=== PATIENT | female | born 1945 | race Caucasian/White ===

== ENCOUNTER 2017-12-27 06:28 | Day surgery (SDC) | payer OTHER ==
[2017-12-26 10:29] VITALS: BP 176/83
[2017-12-27] VITALS (14 sets, daily range): BP systolic 136–179; BP diastolic 55–84
[~2017-12-27] VITALS: Ht 162.6 cm; Wt 104.1 kg
[~2017-12-27 06:28] MED LIST: ACET-2743 PO; AMLO1CAP12 PO; ASPI-1181 PO; ATOR20TA PO; CEFAZOLIN 3GM /D5W 100ML 100 ML IV SCH; CHOL200013 PO; GLIM4TAB3 PO; METF-446 PO
[2017-12-27] MEDS ORDERED: CEFAZOLIN SODIUM 1 GM VIAL ONE ×2 (07:41→09:49)
[2017-12-27] MEDS ORDERED: SODIUM CHLORIDE 0.9% 1000ML 1,000 ML IV ONE (07:41)
[2017-12-27] MEDS ORDERED: LIDOCAINE PF 2% 5ML ABBOJECT ONE ×2 (07:43→09:23)
[2017-12-27] MEDS ORDERED: PROPOFOL 10 MG/ML 20ML VIAL IV ONE ×2 (07:43→09:23)
[2017-12-27] MEDS ORDERED: EPHEDRINE SULFATE 50 MG/ML AMPULE ONE (07:43)
[2017-12-27] MEDS ORDERED: ONDANSETRON HCL 4 MG/2 ML VIAL ONE ×2 (07:43→09:23)
[2017-12-27] MEDS ORDERED: ACAR25TA2 PO (08:03)
[2017-12-27] MEDS ORDERED: MIDAZOLAM HCL 1 MG/ML 2ML VIAL ONE (09:23)
[2017-12-27] MEDS ORDERED: DEXAMETHASONE SOD PHOSPHATE 10MG/ML 1ML VIAL ONE (09:23)
[2017-12-27] MEDS ORDERED: FENTANYL CITRATE PF 50 MCG/1 ML 2ML VIAL ONE (09:23)
[2017-12-27] MEDS ORDERED: CEPH500B PO (10:17)
[2017-12-27] MEDS ORDERED: TYL3 PO (10:17)
[2017-12-27] MEDS ORDERED: MORPHINE SULFATE 4 MG/1ML SYG ONE (10:24)
[2017-12-27] MEDS ORDERED: MORPHINE SULFATE 2 MG/ML 1ML SYG ONE (10:41)
== END 2017-12-27 12:10 | disposition home or self-care (01) ==
LOC: DAH 06:28
PROVIDERS: ATTEND Orthopaedic Surgery
DX: M23.221 Derangement of posterior horn of medial meniscus due to old tear or injury, right knee (principal); M22.41 Chondromalacia patellae, right knee; Z68.38 Body mass index [BMI] 38.0-38.9, adult; I10 Essential (primary) hypertension; Z86.73 Personal history of transient ischemic attack (TIA), and cerebral infarction without residual deficits; E78.5 Hyperlipidemia, unspecified; M19.90 Unspecified osteoarthritis, unspecified site; Z98.890 Other specified postprocedural states; Z90.710 Acquired absence of both cervix and uterus; Z80.9 Family history of malignant neoplasm, unspecified; G89.29 Other chronic pain; E11.65 Type 2 diabetes mellitus with hyperglycemia; Z79.4 Long term (current) use of insulin; E78.00 Pure hypercholesterolemia, unspecified; E66.9 Obesity, unspecified; E55.9 Vitamin D deficiency, unspecified
CPT/HCPCS: 29881; 82948 ×2; A4218; A4606; A4649 ×2; A4930 ×2; A6223; J0690 ×2; J1100; J2001; J2250; J2270; J2405; J2704; J3010; J7030; J3490

== ENCOUNTER → 2018-04-25 | Outpatient (CLI) | payer OTHER ==
[~2018-04-25] MED LIST changes: +ACAR25TA2 PO; -CEFAZOLIN 3GM /D5W 100ML 100 ML IV SCH; +CEPH500B PO; +TYL3 PO
== END | disposition home or self-care (01) ==
LOC: RAH 13:37
PROVIDERS: ATTEND Orthopaedic Surgery
DX: S42.124A Nondisplaced fracture of acromial process, right shoulder, initial encounter for closed fracture (principal); X58.XXXA Exposure to other specified factors, initial encounter; Y93.89 Activity, other specified; Y92.89 Other specified places as the place of occurrence of the external cause; Y99.8 Other external cause status
CPT/HCPCS: 73200

== ENCOUNTER 2018-06-02 14:45 | Observation (INO) | payer OTHER ==
[~2018-06-02] VITALS: Ht 162.6 cm; Wt 103.4 kg
[~2018-06-02 14:45] MED LIST changes: -ACAR25TA2 PO; -ACET-2743 PO; -ATOR20TA PO; -CEPH500B PO; -CHOL200013 PO; -TYL3 PO
[2018-06-02 15:30] VITALS: BP 128/60
[2018-06-02] MEDS ORDERED: ACET-2743 PO (16:03)
[2018-06-02] MEDS ORDERED: ATOR20TA65 PO (16:03)
[2018-06-02 16:11] LABS: APPEARANCE,URINE Clear (CLEAR); BILIRUBIN,URINE Negative (NEGATIVE); COLOR,URINE Yellow (YELLOW); GLUCOSE, URINE (UA) Negative (NEGATIVE); KETONES,URINE Trace mg/dL (NEGATIVE); LEUKOCYTE ESTERASE ,URINE Negative (NEGATIVE); NITRATE,URINE Negative (NEGATIVE); OCCULT BLOOD,URINE Negative (NEGATIVE); PROTEIN,URINE Negative (NEGATIVE)
[2018-06-05] VITALS (19 sets, daily range): BP systolic 111–190; BP diastolic 54–92
[2018-06-05] MEDS ORDERED: CEFAZOLIN 3GM /D5W 100ML 100 ML IV PRN (08:00)
[2018-06-05] MEDS ORDERED: SODIUM CHLORIDE 0.9% 1000ML 1,000 ML IV ONE (09:52)
[2018-06-05] MEDS: CEFAZOLIN SODIUM 1 GM VIAL ONE ×2 (10:15→14:35)
[2018-06-05] MEDS ORDERED: CHOL50004 PO (10:21)
[2018-06-05] MEDS ORDERED: NAPR220C15 PO (10:21)
[2018-06-05] MEDS ORDERED: ACAR100T2 PO (10:21)
[2018-06-05] MEDS ORDERED: LIDOCAINE PF 2% 5ML ABBOJECT ONE (10:50)
[2018-06-05] MEDS ORDERED: SUCCINYLCHOLINE 200MG/10ML SYR ONE (10:50)
[2018-06-05] MEDS ORDERED: MIDAZOLAM HCL 1 MG/ML 2ML VIAL ONE (10:51)
[2018-06-05] MEDS ORDERED: GLYCOPYRROLATE 1 MG/5 ML SYRINGE ONE ×2 (10:51→18:01)
[2018-06-05] MEDS ORDERED: ONDANSETRON HCL 4 MG/2 ML VIAL ONE (10:51)
[2018-06-05] MEDS ORDERED: NEOSTIGMINE 5MG/5ML SYR IV ONE ×2 (10:51→18:01)
[2018-06-05] MEDS ORDERED: PROPOFOL 10 MG/ML 20ML VIAL IV ONE (10:51)
[2018-06-05] MEDS ORDERED: DEXAMETHASONE SOD PHOSPHATE 10MG/ML 1ML VIAL ONE (10:51)
[2018-06-05] MEDS ORDERED: ROCURONIUM 10MG/1ML SYR 10 MG/ML ML ONE (10:52)
[2018-06-05] MEDS ORDERED: FENTANYL CITRATE PF 50 MCG/1 ML 2ML VIAL ONE (10:52)
[2018-06-05] MEDS ORDERED: LIDOCAINE HCL 4% LTA SOL 4 ML VIAL ONE (10:53)
[2018-06-05] MEDS ORDERED: CEPH-578 PO (10:54)
[2018-06-05] MEDS ORDERED: ASPI-1012 PO (10:54)
[2018-06-05] MEDS ORDERED: TYL3 PO (10:54)
[2018-06-05] MEDS ORDERED: ROPIVACAINE 0.5% 5MG/ML 30ML IJ ONE (11:04)
[2018-06-05] MEDS ORDERED: CEFAZOLIN SODIUM 1 GM VIAL ONE ×2 (12:18→17:22)
[2018-06-05] MEDS ORDERED: EPHEDRINE SULFATE 50 MG/ML AMPULE ONE (14:49)
[2018-06-05] MEDS ORDERED: HYDROCODONE/ACETAMINOPHEN 5/325 MG TAB PO PRN (18:30)
[2018-06-05] MEDS ORDERED: DIPHENHYDRAMINE HCL 25 MG CAPSULE PO PRN (18:30)
[2018-06-05] MEDS ORDERED: TEMAZEPAM 15 MG CAPSULE PO PRN (18:30)
[2018-06-05] MEDS ORDERED: LIDOCAINE HCL-MPF 1% 2ML VIAL IVP PRN (18:30)
[2018-06-05] MEDS ORDERED: CALCIUM CARBONATE 500 MG TABLET PO PRN (18:30)
[2018-06-05] MEDS ORDERED: DiphenhydrAMINE HCL 50 MG/ML VIAL IVP PRN (18:30)
[2018-06-05] MEDS ORDERED: POTASSIUM CHLORIDE 20MEQ/100ML 100 ML IV PRN (18:30)
[2018-06-05] MEDS ORDERED: FERROUS FUMARATE 324 MG TABLET PO PRN (18:30)
[2018-06-05] MEDS ORDERED: PROMETHAZINE HCL 25 MG/ML 1ML AMPULE IM PRN (18:30)
[2018-06-05] MEDS ORDERED: POTASSIUM CHLORIDE 10% ELIXIR 20 MEQ/15 ML UDCUP PO PRN (18:30)
[2018-06-05] MEDS ORDERED: ACETAMINOPHEN 1000 MG PO SCH (20:00)
[2018-06-05] MEDS: SODIUM CHLORIDE 0.9% 1000ML 1,000 ML IV SCH (20:15)
[2018-06-05] MEDS: INSULIN HUMULIN R 100 UNIT/ML 3ML SQ SCH (20:16)
[2018-06-05] MEDS: ATORVASTATIN CALCIUM 20 MG TABLET PO SCH (22:04)
[2018-06-05] MEDS: FAMOTIDINE 20MG TAB 20 MG TAB PO SCH (22:05)
[2018-06-05] MEDS: HYDROCODONE/ACETAMINOPHEN 5/325 MG TAB PO PRN (22:09)
[2018-06-06] VITALS (7 sets, daily range): BP systolic 137–188; BP diastolic 65–91
[2018-06-06] MEDS: CEFAZOLIN SODIUM 1 GM VIAL IVP SCH ×2 (00:14→09:49)
[2018-06-06] MEDS: HYDROCODONE/ACETAMINOPHEN 5/325 MG TAB PO PRN ×2 (03:44→16:59)
[2018-06-06] MEDS: SODIUM CHLORIDE 0.9% 1000ML 1,000 ML IV SCH (04:03)
[2018-06-06 05:29] LABS: HEMATOCRIT 27.8 % (36-48); MEAN CORPUSCULAR HEMOGLOBIN 26.2 pg (27.0-33.0); MEAN CORPUSCULAR HGB CONC 32.5 g/dL (32.0-36.0); MEAN CORPUSCULAR VOLUME 80.5 fL (79-99); PLATELET COUNT (AUTO) 277 K/uL (130-400); RED BLOOD CELL COUNT(AUTO) 3.45 MIL/uL (4.00-5.50); RED CELL DISTRIBUTION WIDTH 15.9 % (11.0-15.5); WHITE BLOOD COUNT (AUTO) 7.3 K/uL (4.8-10.8)
[2018-06-06 05:46] LABS: CREATININE 0.7 mg/dL (0.5-1.5); POTASSIUM 3.1 mmol/L (3.5-5.1)
[2018-06-06] MEDS: INSULIN HUMULIN R 100 UNIT/ML 3ML SQ SCH ×4 (05:54→20:14)
[2018-06-06] MEDS: POTASSIUM CHLORIDE 20 MEQ ERTAB PO PRN (06:01)
[2018-06-06] MEDS: KETOROLAC TROMETHAMINE 15MG/ML IV PRN (06:30)
[2018-06-06] MEDS: METFORMIN HCL 500 MG TABLET PO SCH ×2 (07:58→16:58)
[2018-06-06] MEDS: ACARBOSE 25 MG TABLET PO SCH ×4 (08:00→16:57)
[2018-06-06] MEDS: AMLODIPINE-BENAZEPRIL 5-20 MG PO SCH (08:04)
[2018-06-06] MEDS: ASPIRIN 81 MG EC TAB PO SCH (08:06)
[2018-06-06] MEDS: FAMOTIDINE 20MG TAB 20 MG TAB PO SCH (08:06)
[2018-06-06] MEDS: POLYETHYLENE GLYCOL 3350 17 GM POWD.PACK PO SCH (08:06)
[2018-06-06] MEDS: VITAMIN D3 PO SCH (08:06)
[2018-06-06] MEDS: ENOXAPARIN SODIUM 40 MG/0.4 ML SYRINGE SQ SCH (08:07)
[2018-06-06] MEDS: GLIMEPIRIDE 2 MG TABLET PO SCH ×2 (08:07→16:58)
[2018-06-06] MEDS: PSYLLIUM SEED 1 EACH PACKET PO SCH (11:34)
[2018-06-06] MEDS ORDERED: PHARMACY COMMUNICATION MISC SCH (11:43)
[2018-06-06] MEDS ORDERED: ACETAMINOPHEN 325 MG TAB PO SCH (18:00)
[2018-06-06] MEDS ORDERED: ACETAMINOPHEN EXTRA STRENGTH 500 MG TABLET ONE (18:11)
[2018-06-06] MEDS: ACETAMINOPHEN EXTRA STRENGTH 500 MG TABLET PO SCH ×2 (18:17→20:14)
[2018-06-06] MEDS: ATORVASTATIN CALCIUM 20 MG TABLET PO SCH (18:17)
[2018-06-07] MEDS: HYDROCODONE/ACETAMINOPHEN 5/325 MG TAB PO PRN ×2 (00:59→07:52)
[2018-06-07 03:42] VITALS: BP 126/68
[2018-06-07 04:01] LABS: HEMATOCRIT 27.9 % (36-48); MEAN CORPUSCULAR HEMOGLOBIN 26.4 pg (27.0-33.0); MEAN CORPUSCULAR HGB CONC 33.1 g/dL (32.0-36.0); MEAN CORPUSCULAR VOLUME 79.7 fL (79-99); NUCLEATED RED BLOOD CELLS 0.1 % (0.0-0.19); PLATELET COUNT (AUTO) 251 K/uL (130-400); RED CELL DISTRIBUTION WIDTH 16.4 % (11.0-15.5); WHITE BLOOD COUNT (AUTO) 7.7 K/uL (4.8-10.8)
[2018-06-07 04:15] LABS: CREATININE 0.8 mg/dL (0.5-1.5); POTASSIUM 3.5 mmol/L (3.5-5.1)
[2018-06-07] MEDS: ACETAMINOPHEN EXTRA STRENGTH 500 MG TABLET PO SCH ×2 (05:09→13:05)
[2018-06-07] MEDS: POTASSIUM CHLORIDE 20 MEQ ERTAB PO PRN ×2 (05:17→08:19)
[2018-06-07] MEDS: INSULIN HUMULIN R 100 UNIT/ML 3ML SQ SCH ×3 (05:35→16:30)
[2018-06-07] MEDS: ASPIRIN 81 MG EC TAB PO SCH (07:50)
[2018-06-07] MEDS: POLYETHYLENE GLYCOL 3350 17 GM POWD.PACK PO SCH (07:50)
[2018-06-07] MEDS: FAMOTIDINE 20MG TAB 20 MG TAB PO SCH (07:50)
[2018-06-07] MEDS: ENOXAPARIN SODIUM 40 MG/0.4 ML SYRINGE SQ SCH (07:51)
[2018-06-07] MEDS: GLIMEPIRIDE 2 MG TABLET PO SCH (07:51)
[2018-06-07] MEDS: METFORMIN HCL 500 MG TABLET PO SCH (07:51)
[2018-06-07 07:53] VITALS: BP 168/79
[2018-06-07] MEDS: VITAMIN D3 PO SCH (07:54)
[2018-06-07] MEDS: AMLODIPINE-BENAZEPRIL 5-20 MG PO SCH (08:19)
[2018-06-07] MEDS: ACARBOSE 25 MG TABLET PO SCH ×2 (08:19→13:04)
[2018-06-07 12:05] VITALS: BP 143/77
[2018-06-07] MEDS: PSYLLIUM SEED 1 EACH PACKET PO SCH (13:05)
[2018-06-07] MEDS: KETOROLAC TROMETHAMINE 15MG/ML IV PRN (13:14)
[2018-06-07] MEDS ORDERED: HYDR-4457 PO (14:26)
--- NOTE | 2018-06-07 15:35 | NUR ---
DISCHARGE DISCHARGE TEACHING DONE WITH PATIENT USING TEACHBACK METHOD, VERBALIZED UNDERSTANDING. NO NOTED SOB OR DISTRESS. PT AWARE OF NEW PRESCRIPTION MEDICATION, VERBALIZED UNDERSTANDING ON ADMINISTRATION. PT AWARE OF NEED TO SEE DR. BULLARD FOR APPOINTMENT. INCISION AND DRESSING CARE TEACHING DONE WITH PATIENT, VERBALIZED UNDERSTANDING. DRESSING TO RIGHT SHOULDER CHANGED, INCISION IS DRY AND INTACT, HEMOVAC REMOVED, CATH TIP INTACT. IV REMOVED, CATH TIP INTACT. REPORT GIVEN TO [facility] STAFF. PENDING TO BE TRANSFERRED OUT VIA PRIVATE VEHICLE.
[2018-06-07] MEDS ORDERED: BISACODYL 5 MG TABLET.DR PO PRN (18:30)
[2018-06-08] MEDS ORDERED: BISACODYL 10 MG SUPP.RECT RC PRN (18:30)
== END 2018-06-07 18:09 ==
LOC: EDSTATUS 14:45 → DAHIP 06-05 09:19 → 4AH 06-05 19:21
PROVIDERS: ADMIT Orthopaedic Surgery; ATTEND Orthopaedic Surgery
DX: S42.109A Fracture of unspecified part of scapula, unspecified shoulder, initial encounter for closed fracture (principal); E78.5 Hyperlipidemia, unspecified; I10 Essential (primary) hypertension; E66.9 Obesity, unspecified; E78.00 Pure hypercholesterolemia, unspecified; E11.65 Type 2 diabetes mellitus with hyperglycemia; Z91.81 History of falling; Z86.73 Personal history of transient ischemic attack (TIA), and cerebral infarction without residual deficits; Z90.710 Acquired absence of both cervix and uterus; Z96.611 Presence of right artificial shoulder joint; Z79.899 Other long term (current) drug therapy; Z82.3 Family history of stroke; Z80.9 Family history of malignant neoplasm, unspecified
CPT/HCPCS: 23585; 36415 ×2; 76000; 80048 ×2; 81003; 82948 ×10; 85027 ×2; 96372 ×2; 96374; 96375; 96376 ×2; 97116 ×4; 97161; 97530 ×2; A4218; A4565; A4600; A4649 ×4; A4930; A6223; C1713 ×10; C1776 ×2; G0378 ×58; G8978; G8979; G8980; G8981; G8982; G8983; J0330; J0690 ×5; J1100; J1650 ×2; J1815 ×2; J1885 ×2; J2001; J2250; J2405; J2704; J2710 ×2; J2795; J3010; J3490 ×3; J7030 ×2; 88302; 88307